=== PATIENT | female | born 1935 ===

== ENCOUNTER 2018-12-08 07:24 | Outpatient (CLI) | payer OTHER ==
[~2018-12-08 07:24] MED LIST: DOLOGEN CAPLET1 EACH PO
== END 2018-12-08 07:41 | disposition home or self-care (01) ==
LOC: NUCLEAR 07:24
DX: I50.9 Heart failure, unspecified (principal); I25.10 Atherosclerotic heart disease of native coronary artery without angina pectoris
CPT/HCPCS: 78452; 93017; A9500; J0153